=== PATIENT | female | born 1975 | race Caucasian/White ===

== ENCOUNTER 2018-11-07 10:27 | Emergency (ER) | payer OTHER ==
[~2018-11-07] VITALS: Ht 170.2 cm; Wt 90.7 kg
[~2018-11-07 10:27] MED LIST: AZITHROMYCIN 2250 MG PO; LEVOTHYROXIN0.125 M1; NOHOMEMEDICATIONS
[2018-11-07 10:35] VITALS: BP 144/86
== END 2018-11-07 11:40 | disposition home or self-care (01) ==
LOC: M.ERS 10:27
DX: S93.491A Sprain of other ligament of right ankle, initial encounter (principal); Z88.2 Allergy status to sulfonamides; Z98.890 Other specified postprocedural states; W11.XXXA Fall on and from ladder, initial encounter; Y92.89 Other specified places as the place of occurrence of the external cause; Y93.89 Activity, other specified; Y99.8 Other external cause status